=== PATIENT | male | born 1940 | race Caucasian/White ===

== ENCOUNTER 2020-04-28 09:52 | Outpatient (CLI) | payer MEDICARE, BC ==
[~2020-04-28] VITALS: Ht 182.9 cm; Wt 83.0 kg
[2020-04-28] VITALS (13 sets, daily range): BP systolic 106–179; BP diastolic 74–108
[2020-04-28] MEDS ORDERED: CARV3.1210 PO (10:22)
[2020-04-28] MEDS ORDERED: WARF-31 PO (10:22)
[2020-04-28] MEDS ORDERED: PROP325C4 PO (10:22)
[2020-04-28] MEDS ORDERED: ATOR40TA59 PO (10:22)
[2020-04-28] MEDS ORDERED: WARF7.5T45 PO (10:22)
[2020-04-28] MEDS ORDERED: ASPI-630 PO (10:22)
[2020-04-28] MEDS ORDERED: TAMS0.4C97 PO (10:22)
[2020-04-28 10:51] LABS: CALCIUM 8.6 mg/dL (8.5-10.1); CREATININE 0.9 mg/dL (0.7-1.3); GFR 81.8; POTASSIUM 4.1 mmol/L (3.5-5.1)
[2020-04-28] MEDS ORDERED: LIDOCAINE 2% 20 ML VIAL. ONE (10:56)
[2020-04-28 11:02] LABS: BASO % 1 % (0-3); EOS # 0.1 x10^3/uL (0.0-0.7); EOS % 2 % (0-3); HEMATOCRIT 44.8 % (39.0-53.0); HEMOGLOBIN 14.8 g/dL (13.0-17.5); LYMPH # 1.3 x10^3/uL (1.0-4.8); LYMPH % 21 % (24-48); MEAN CORPUSCULAR HEMOGLOBIN 31 pg (25-35); MEAN CORPUSCULAR HGB CONC 33 g/dL (31-37); MEAN CORPUSCULAR VOLUME 93 fL (79-100); MONO # 0.4 x10^3/uL (0.0-1.1); MONO % 6 % (0-9); NEUT # 4.5 x10^3/uL (1.8-7.7); NEUT % 72 % (31-73); PLATELET COUNT 183 x10^3/uL (140-400); RED BLOOD COUNT 4.82 x10^6/uL (4.30-5.70); RED CELL DISTRIBUTION WIDTH 14.5 % (11.5-14.5); WHITE BLOOD COUNT 6.2 x10^3/uL (4.0-11.0)
[2020-04-28] MEDS ORDERED: IOHEXOL 240 MG/ML 50ML VIAL. ONE (11:03)
[2020-04-28 11:10] LABS: PROTHROMBIN TIME PATIENT 12.5 SEC (11.7-14.0)
[2020-04-28] MEDS ORDERED: LIDOCAINE WITH 8.4% SOD BICARB 3 ML DISP.SYRIN. IJ ONE (11:15)
[2020-04-28] MEDS ORDERED: fentaNYL PF VIAL 100 MCG/2 ML VIAL IV ONE (11:15)
[2020-04-28] MEDS ORDERED: MIDAZOLAM HCL/PF 5 MG/5 ML VIAL. IV ONE (11:15)
[2020-04-28] MEDS ORDERED: fentaNYL PF VIAL 100 MCG/2 ML VIAL ONE (11:27)
[2020-04-28] MEDS ORDERED: MIDAZOLAM HCL/PF 5 MG/5 ML VIAL. ONE (11:27)
[2020-04-28] MEDS ORDERED: IOHEXOL 240 MG/ML 50ML VIAL. IJ ONE (12:15)
[2020-04-28] MEDS ORDERED: LIDOCAINE 2% 20 ML VIAL. IJ ONE (12:15)
[2020-04-28] MEDS ORDERED: CONTRAST GIVEN. MC PRN (12:15)
--- NOTE | 2020-04-28 13:47 | RAD ---
Fluoroscopically guided kyphoplasty T11 Indication:T11 compression fracture likely secondary to bone mineralization with significant pain limiting activities of daily living, and refractory to conservative treatment measures. Fluoro time:7.8 minutes Dose area product: 40.7 Gycm2 Moderate sedation: The patient was appropriately monitored by a qualified independent observer throughout the course of the moderate sedation. Zhnd-oa-[id number] sedation time:34 minutes Consent: The risks and benefits of the procedure were discussed with the patient. Informed consent was obtained. The patient was brought to the fluoroscopy suite and placed in the prone position. A timeout procedure was performed. Preprocedural antibiotics were administered. Procedure: The overlying skin was prepped and draped in the usual sterile fashion. All elements of maximal sterile barrier technique including the use of a cap, mask, sterile gown, sterile gloves, large sterile sheet, appropriate hand hygiene, and 2% chlorhexidine for cutaneous antisepsis (or acceptable alternative antiseptic per current guidelines) were followed for this procedure. Using a left transpedicular approach, and direct fluoroscopic guidance, a trocar needle was advanced to the posterior third of the targeted T11 vertebral body. Vertebral augmentation balloon was then coaxially introduced through the needle, into the more central vertebral body and was deployed. A curved cement delivery needle was advanced into the contralateral vertebral body. Contrast opacified polymethylmethacrylate was then very slowly and carefully introduced through the vertebral augmentation needle, using strict fluoroscopic control. Once adequate filling had been achieved the needles were removed and manual pressure was held. No significant extravasation or complication was identified. Sterile dressing was applied. Patient tolerated the procedure well, without apparent complication. Impression: Fluoroscopically guided kyphoplasty at T11
--- NOTE | 2020-04-28 14:52 | NUR ---
Discharge Note: YAZ JAQUEZ Discharge instructions and discharge home medications reviewed with Patient and a copy given. All questions have been answered and understanding verbalized. The following instructions and handouts were given: vertebroplasty after care and adult moderate sedation Discontinued lines and drains: Peripheral IV intact. Patient discharged to Home or Self Care withFamily Membera Wheelchair
== END 2020-04-28 14:54 | disposition home or self-care (01) ==
LOC: INTRAD 09:52
PROVIDERS: ATTEND Radiology Diagnostic Radiology
DX: S22.088A Other fracture of T11-T12 vertebra, initial encounter for closed fracture (principal); I10 Essential (primary) hypertension; I25.10 Atherosclerotic heart disease of native coronary artery without angina pectoris; I48.91 Unspecified atrial fibrillation; Z86.73 Personal history of transient ischemic attack (TIA), and cerebral infarction without residual deficits; Z98.890 Other specified postprocedural states; Z79.899 Other long term (current) drug therapy; Z79.01 Long term (current) use of anticoagulants; Z85.828 Personal history of other malignant neoplasm of skin; X58.XXXA Exposure to other specified factors, initial encounter; Y93.89 Activity, other specified; Y92.89 Other specified places as the place of occurrence of the external cause; Y99.8 Other external cause status
CPT/HCPCS: 22513; 36415; 80048; 85025; 85610; 99152; 99153; C1713; J0690; J2250; J3010; Q9966

== ENCOUNTER 2021-05-15 15:57 | Emergency (ER) | payer MEDICARE, BC ==
[~2021-05-15] VITALS: Ht 180.3 cm; Wt 76.2 kg
[~2021-05-15 15:57] MED LIST: ASPI-630 PO; ATOR40TA59 PO; CARV3.1210 PO; PROP325C4 PO; TAMS0.4C97 PO; WARF-31 PO; WARF7.5T45 PO
--- NOTE | 2021-05-15 17:16 | RAD ---
Exam: CT head and cervical spine INDICATION: Fall, pain TECHNIQUE: Sequential axial images through the head and cervical spine were obtained without the admi nistration of IV contrast. Exposure: One or more of the following in the visualized dose reduction techniques were utilized for this examination: 1. Automated exposure control 2. Adjustment of the MA and/or KV according to patient size 3. Use of iterative of reconstructive technique Comparisons: None FINDINGS: Head: No focal parenchymal lesion or hemorrhage is identified. There is no midline shift or sulcal effaceme nt. Encephalomalacia changes noted at the cerebellum bilaterally. Patchy hypodensity in the periventricul ar white matter. No acute vascular territory infarction is identified. Talamantes-white distinction is pres erved. The ventricular system is within normal limits without compression hydrocephalus. The basal cisterns are well maintained. Mild extra cranial soft tissue scalp contusion overlying the right frontal region. The visualized por tions of the paranasal sinuses and mastoid air cells are well-pneumatized. No acute fractures. Cervical spine: Vertebral body heights and alignment are well-maintained. Fracture to the cervical spine is not identified. Multilevel spondylotic change in the lumbar spine with degenerative disc disease greatest at C5-C6, C 6-C7. Mild diffuse bilateral facet arthropathy is also noted in the cervical spine. Visualized paraspinal soft tissues are unremarkable. IMPRESSION: 1. Mild extra cranial soft tissue scalp contusion overlying the right frontal region without underly ing osseous or intracranial abnormality. 2. Negative CT C-spine for acute traumatic injury. 3. Chronic ischemic changes as described above. Electronically signed by: Yonas Montez MD (05/15/2021 5:14 PM) DARRICK
--- NOTE | 2021-05-15 17:43 | RAD ---
Site ID: [id number] EXAMINATION: XR RIBS MIN 3 VIEWS LT W/PA CHEST. HISTORY: 80 years Male injury. COMPARISON: None. Findings: There is elevation of the right hemidiaphragm and the associated atelectasis in the right l ower lobe. The right lower lobe of the lung is not well evaluated due to significant the elevation of the right hemidiaphragm with the air-fluid levels as seen. It is uncertain if this represents a larg e diaphragmatic hernia with bowel content or severe eventration. There is no pneumothorax. The heart size is mildly enlarged. Left rib views demonstrate the no definite fracture. There is evidence of pr ior kyphoplasty at T 11 level. Impression: 1. No left rib fracture identified. 2. There is large opacity in the right lower thorax presumed to represent a large diaphragmatic herni a or diaphragm eventration with the bowel content. Correlate history and with mechanism in severity of injury. If there is concern for acute diaphragmatic injury, then CT scan of the chest, and abdomen would be helpful. Electronically signed by: Dat Tam MD (05/15/2021 5:41 PM) [id number]
--- NOTE | 2021-05-15 18:36 | RAD ---
EXAMINATION: CT chest, abdomen and pelvis without IV contrast. INDICATION:80 years, Male, male, left rib pain concern for diaphragmatic injury. TECHNIQUE: Axial CT images of the chest, abdomen and pelvis were obtained. Coronal and sagittal refor matted performed. COMPARISON: None. Exposure: One or more of the following individualized dose reduction techniques were utilized for thi s examination: 1. Automated exposure control 2. Adjustment of the mA and/or kV according to patient size 3. Use of iterative reconstruction technique. FINDINGS: CHEST: Central airways are patent. Mucous debris seen in the trachea. No focal consolidation, pleural effusi on or pneumothorax. Minimal centrilobular and paraseptal pulmonary emphysema. No suspicious pulmonary nodule. Calcified granuloma in the left lower lobe. Calcified bilateral pleural plaques, likely asbe stosis related disease. Large hiatal hernia extends to the right hemithorax, associated with right lo wer lobe atelectatic changes. This hernia is containing organoaxial malrotated entire stomach, and po rtion of the transverse colon. Visualized thyroid and esophagus are unremarkable. No lymphadenopathy in the chest by size criteria. Calcified left hilar lymph nodes. Normal cardiac size with no pericardial effusion. Severe coronary a rtery atherosclerotic calcifications. Normal caliber thoracic aorta and pulmonary arteries. ABDOMEN/PELVIS: Within the limitation of noncontrast exam, Liver is unremarkable. Minimal cholelithiasis. No biliary ductal dilatation. Calcified granulomas in the spleen. Unremarkable pancreas. No adrenal nodule. No hydronephrosis in either kidney. 2 nonobstru cting left nephrolithiasis with the largest measures 0.8 cm. Nonspecific bilateral perinephric fat st randing. No bowel obstruction or wall thickening. Normal appendix. Moderate to severe aortoiliac athe rosclerotic calcifications without dilatation. No pelvic or retroperitoneal lymphadenopathy by size c riteria. No pneumoperitoneum or ascites. Diffuse trabeculated urinary bladder wall thickening with la rge size right posterior bladder diverticulum, findings likely secondary to chronic outlet obstructio n. Mild perivesical ankle fat stranding present. Severe prostamegaly measures 5.8 cm in short axis. MUSCULOSKELETAL: Chronic compression fracture of T11 vertebral body with kyphoplasty changes. Severe multilevel change s in the thoracolumbar spine. Grade 1 anterolisthesis of L5 over S1. Small fat-containing left inguin al hernia. IMPRESSION: 1. No acute traumatic injury to the chest, abdomen or pelvis. 2. Large hiatal hernia extends to the right hemithorax, containing organoaxial malrotated entire stom ach, and portion of the transverse colon. 3. Nonobstructing left nephrolithiasis measuring up to 8mm. 4. Diffuse trabeculated urinary bladder wall with large size right posterior bladder diverticulum, li madi secondary to chronic outlet obstruction from severe prostamegaly. Consider correlation with urin alysis to to exclude cystitis. Recommend correlation with PSA level. Electronically signed by: Toni Arambula MD (05/15/2021 6:34 PM) [facility]
--- NOTE | 2021-05-15 19:23 | PHYS DOC ---
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 Patient states he was changing his catheter, he states he stood up, bend to pick something on the floor and fell forward hitting his head on the counter as well as his left ribs on the toilet. Patient denies any loss of consciousness. He is reporting mild right forehead pain and left rib pain. He states his pain is worse on the ribs on touching the area as well as deep breaths. Patient is also reporting slight neck pain though he states most of it is chronic. Denies anything specifically exacerbating or relieving his neck pain. He states he is on Coumadin though it is on hold the right now because he states his INR was high. (PHYLLIS LANGLEY [employer] P[employer] MACHINE OPERATOR) Review of Systems: Review of Systems: Constitutional: Denies fever or chills. [] Eyes: Denies change in visual acuity. [] HENT: Denies nasal congestion or sore throat. [] Respiratory: Reports left rib pain, denies cough or shortness of breath. [] Cardiovascular: Denies chest pain or edema. [] GI: Denies abdominal pain, nausea, vomiting, bloody stools or diarrhea. [] : Denies dysuria. [] Musculoskeletal: Denies back pain or joint pain. [] Integument: Denies rash. [] Neurologic: Reports forehead contusion. Denies headache, focal weakness or sensory changes. [] Psychiatric: Denies depression or anxiety. [] (LEYDAChapinPHYLLIS Kenzie FR[employer] PICKER MACHINE OPERATOR) Heart Score: C/O Chest Pain: N/A Risk Factors: Risk Factors: DM, Current or recent (<one month) smoker, HTN, HLP, family history of CAD, obesity. Risk Scores: Score 0 - 3: 2.5% MACE over next 6 weeks - Discharge Home Score 4 - 6: 20.3% MACE over next 6 weeks - Admit for Clinical Observation Score 7 - 10: 72.7% MACE over next 6 weeks - Early Invasive Strategies (PHYLLIS LANGLEY [employer] P[employer] MACHINE OPERATOR) Allergies: Allergies: Allergies Coded Allergies Type Severity Reaction Last Updated Verified No Known Drug Allergies 05/15/21 No (PHYLLIS LANGLEY [employer] P[employer] MACHINE OPERATOR) Physical Exam: PE: Constitutional: Well developed, well nourished, no acute distress, non-toxic appearance. [] HENT: Normocephalic, atraumatic, bilateral external ears normal, oropharynx moist, no oral exudates, nose normal. [] Eyes: PERRLA, EOMI, conjunctiva normal, no discharge. [] Neck: Normal range of motion, no tenderness, supple, no stridor. [] Cardiovascular:Heart rate regular rhythm, no murmur [] Lungs & Thorax: Left rib mid clavicular line approximately ribs 7 through 9 with tenderness and bruising, bilateral breath sounds clear to auscultation [] Abdomen: Bowel sounds normal, soft, no tenderness, no masses, no pulsatile masses. [] Skin: Warm, dry, no erythema, no rash. [] Back: No tenderness, no CVA tenderness. [] Extremities: No tenderness, no cyanosis, no clubbing, ROM intact, no edema. [] Neurologic: Right forehead with soft tissue swelling consistent of a contusion. Alert and oriented X 3, normal motor function, normal sensory function, no focal deficits noted. Cranial nerves II through XII intact Psychologic: Affect normal, judgement normal, mood normal. [] (PHYLLIS LANGLEY [employer] P[employer] MACHINE OPERATOR) Current Patient Data: Vital Signs: Vital Signs Date Time Temp Pulse Resp B/P (MAP) Pulse Ox O2 Delivery O2 Flow Rate FiO2 05/15/21 18:20 71 175/94 (121) 96 05/15/21 16:22 98.0 18 Room Air 98.0 (PHYLLIS LANGLEY [employer] P[employer] MACHINE OPERATOR) EKG: EKG: [] (PHYLLIS LANGLEY FR[employer] P[employer] MACHINE OPERATOR) Radiology/Procedures: Radiology/Procedures: []PROCEDURE: CT HEAD AND CERVICAL SPINE WO Exam: CT head and cervical spine INDICATION: Fall, pain TECHNIQUE: Sequential axial images through the head and cervical spine were obtained without the administration of IV contrast. Exposure: One or more of the following in the visualized dose reduction techniques were utilized for this examination: 1. Automated exposure control 2. Adjustment of the MA and/or KV according to patient size 3. Use of iterative of reconstructive technique Comparisons: None FINDINGS: Head: No focal parenchymal lesion or hemorrhage is identified. There is no midline shift or sulcal effacement. Encephalomalacia changes noted at the cerebellum bilaterally. Patchy hypodensity in the periventricular white matter. No acute vascular territory infarction is identified. Talamantes-white distinction is preserved. The ventricular system is within normal limits without compression hydrocephalus. The basal cisterns are well maintained. Mild extra cranial soft tissue scalp contusion overlying the right frontal region. The visualized portions of the paranasal sinuses and mastoid air cells are well-pneumatized. No acute fractures. Cervical spine: Vertebral body heights and alignment are well-maintained. Fracture to the cervical spine is not identified. Multilevel spondylotic change in the lumbar spine with degenerative disc disease greatest at C5-C6, C6-C7. Mild diffuse bilateral facet arthropathy is also noted in the cervical spine. Visualized paraspinal soft tissues are unremarkable. IMPRESSION: 1. Mild extra cranial soft tissue scalp contusion overlying the right frontal region without underlying osseous or intracranial abnormality. 2. Negative CT C-spine for acute traumatic injury. 3. Chronic ischemic changes as described above. Electronically signed by: Yonas Hernandes MD (05/15/2021 5:14 PM) [facility] DICTATED and SIGNED BY: YONAS HERNANDES MD DATE: 05/15/21 [id number] PROCEDURE: CT CHEST ABDOMEN PELVIS WO EXAMINATION: CT chest, abdomen and pelvis without IV contrast. INDICATION:80 years, Male, male, left rib pain concern for diaphragmatic injury. TECHNIQUE: Axial CT images of the chest, abdomen and pelvis were obtained. Coronal and sagittal reformatted performed. COMPARISON: None. Exposure: One or more of the following individualized dose reduction techniques were utilized for this examination: 1. Automated exposure control 2. Adjustment of the mA and/or kV according to patient size 3. Use of iterative reconstruction technique. FINDINGS: CHEST: Central airways are patent. Mucous debris seen in the trachea. No focal consolidation, pleural effusion or pneumothorax. Minimal centrilobular and paraseptal pulmonary emphysema. No suspicious pulmonary nodule. Calcified granuloma in the left lower lobe. 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 Large hiatal hernia extends to the right hemithorax, associated with right lower lobe atelectatic changes. This hernia is containing organoaxial malrotated entire stomach, and portion of the transverse colon. Visualized thyroid and esophagus are unremarkable. No lymphadenopathy in the chest by size criteria. Calcified left hilar lymph nodes. Normal cardiac size with no pericardial effusion. Severe coronary artery atherosclerotic calcifications. Normal caliber thoracic aorta and pulmonary arteries. ABDOMEN/PELVIS: Within the limitation of noncontrast exam, Liver is unremarkable. Minimal cholelithiasis. No biliary ductal dilatation. Calcified granulomas in the spleen. Unremarkable pancreas. No adrenal nodule. No hydronephrosis in either kidney. 2 nonobstructing left nephrolithiasis with the largest measures 0.8 cm. Nonspecific bilateral perinephric fat stranding. No bowel obstruction or wall thickening. Normal appendix. Moderate to severe aortoiliac atherosclerotic calcifications without dilatation. No pelvic or retroperitoneal lymphadenopathy by size criteria. No pneumoperitoneum or ascites. Diffuse trabeculated urinary bladder wall thickening with large size right posterior bladder diverticulum, findings likely secondary to chronic outlet obstruction. Mild perivesical ankle fat stranding present. Severe prostamegaly measures 5.8 cm in short axis. MUSCULOSKELETAL: Chronic compression fracture of T11 vertebral body with kyphoplasty changes. Severe multilevel changes in the thoracolumbar spine. Grade 1 anterolisthesis of L5 over S1. Small fat-containing left inguinal hernia. IMPRESSION: 1. No acute traumatic injury to the chest, abdomen or pelvis. 2. Large hiatal hernia extends to the right hemithorax, containing organoaxial malrotated entire stomach, and portion of the transverse colon. 3. Nonobstructing left nephrolithiasis measuring up to 8mm. 4. Diffuse trabeculated urinary bladder wall with large size right posterior bladder diverticulum, likely secondary to chronic outlet obstruction from severe prostamegaly. Consider correlation with urinalysis to to exclude cystitis. Recommend correlation with PSA level. Electronically signed by: Rizwan Arambula MD (05/15/2021 6:34 PM) [facility] DICTATED and SIGNED BY: RIZWAN ARAMBULA MD DATE: 05/15/21 [id number] PROCEDURE: RIBS LEFT AND PA CHEST Site ID: [id number] EXAMINATION: XR RIBS MIN 3 VIEWS LT W/PA CHEST. HISTORY: 80 years Male injury. COMPARISON: None. Findings: There is elevation of the right hemidiaphragm and the associated atelectasis in the right lower lobe. The right lower lobe of the lung is not well evaluated due to significant the elevation of the right hemidiaphragm with the air-fluid levels as seen. It is uncertain if this represents a large diaphragmatic hernia with bowel content or severe eventration. There is no pneumothorax. The heart size is mildly enlarged. Left rib views demonstrate the no definite fracture. There is evidence of prior kyphoplasty at T 11 level. Impression: 1. No left rib fracture identified. 2. There is large opacity in the right lower thorax presumed to represent a large diaphragmatic hernia or diaphragm eventration with the bowel content. Cor relate history and with mechanism in severity of injury. If there is concern for acute diaphragmatic injury, then CT scan of the chest, and abdomen would be helpful. Electronically signed by: Jennifer Tam MD (05/15/2021 5:41 PM) [id number] DICTATED and SIGNED BY: JENNIFER TAM MD DATE: 05/15/21 [id number] 0 (PHYLLIS LANGLEY APRN) Course & Med Decision Making: Course & Med Decision Making Pertinent Labs and Imaging studies reviewed. (See chart for details) This a 80-year-old male patient presented to the ED today to be evaluated after falling. No loss of consciousness. CT of the head and neck was noted for contusion/hematoma to the right forehead otherwise no acute findings Left rib x-rays including PA chest were negative for any fractures, there is concern for hiatal hernia or other diaphragmatic injury, CT chest abdomen and pelvis was obtained which was negative for any diaphragmatic injury, noted for large hiatal hernia which patient is aware of. Also noted for bladder issues which patient is aware of and follows up with urologist at [facility]. Patient was discharged home. Follow-up with his own PCP in the course of this week. Provided return precautions. (PHYLLIS LANGLEY APRN) Dragon Disclaimer: Dragon Disclaimer: This electronic medical record was generated, in whole or in part, using a voice recognition dictation system. (PHYLLIS LANGLEY APRN) Departure Departure Impression: Primary Impression: Fall from standing Qualified Codes: W19.XXXA - Unspecified fall, initial encounter Additional Impressions: Forehead contusion Qualified Codes: S00.83XA - Contusion of other part of head, initial encount er Rib contusion Qualified Codes: S20.212A - Contusion of left front wall of thorax, initial encounter Disposition: HOME / SELF CARE / HOMELESS Condition: STABLE Referrals: RONY KIRBY (PCP) follow up in one week Patient Instructions: Contusion, [id number] Additional Instructions: You were evaluated in the emergency room after falling, you have a contusion to your right forehead. You also have left rib contusion. Try to elevate your head. Take deep breaths 10 times every hour while awake. Take the prescribed medicine as needed for pain. Follow-up with primary care doctor in the course of this week. Come back to the ED at any point symptoms worsen. Scripts Cyclobenzaprine Hcl (CYCLOBENZAPRINE HCL) 10 Mg Tablet 1 TAB PO TID, #30 TAB Prov: PHYLLIS LANGLEY APRN 05/15/21 Attending Signature Attending Signature I have reviewed the PA/LAPIDARIST's note and plan of care. I was available for consultation as needed during the patient's visit in the emergency department. I agree with the clinical impression, plan, and disposition. (MALA ONTIVEROS DO) PHYLLIS LANGLEY APRN May 15, 2021 19:22 MALA ONTIVEROS DO May 16, 2021 14:53
[2021-05-15] MEDS ORDERED: CYCL10TA2 PO (19:33)
[2021-05-15 20:00] VITALS: BP 170/92
== END 2021-05-15 20:16 | disposition home or self-care (01) ==
LOC: ER 15:57
DX: S20.212A Contusion of left front wall of thorax, initial encounter (principal); S00.83XA Contusion of other part of head, initial encounter; R51.9 Headache, unspecified; M54.2 Cervicalgia; R10.9 Unspecified abdominal pain; M51.36 Other intervertebral disc degeneration, lumbar region; K40.90 Unilateral inguinal hernia, without obstruction or gangrene, not specified as recurrent; W18.09XA Striking against other object with subsequent fall, initial encounter; Y93.89 Activity, other specified; Y92.89 Other specified places as the place of occurrence of the external cause; Y99.8 Other external cause status
CPT/HCPCS: 70450; 71101; 71250; 72125; 74176; 99285-25